=== PATIENT | male | born 1970 | race Caucasian/White ===

== ENCOUNTER 2019-05-09 17:43 | Inpatient (IN) ==
--- NOTE | 2019-05-09 18:15 | PROVIDER DOCUMENTATION ---
HPI-General Adult - General Chief Complaint: Flank Pain Stated Complaint: SEVERE BACK PAIN/VOMITING Time Seen by Provider: 05/09/19 17:51 Source: patient, family Allergies/Adverse Reactions: Patient Allergies Allergy/AdvReac Type Severity Reaction Status Date / Time No Known Allergies Allergy Verified 05/09/19 18:35 Home Medications: Home Medication List Medication Instructions Recorded Confirmed Last Taken Type Fexofenadine [Sade] 180 mg PO DAILY 05/09/19 05/09/19 Unknown History - History of Present Illness -Gen Adult Nature of Presenting Problems: 49yo male presents with acute onset of left sided abdominal and back pain. Patient reports that he has noted some discolored urine for about the last month on and off. He denies dysuria. He does report nausea and vomiting, but denies fevers. Location of Pain/Injury: reports: other (flank) Pain Radiation: reports: back Onset/Duration: reports: 1 hour ago Timing: reports: intermittent Modifying Factors: improves with: movement Associated Symptoms: reports: nausea, vomiting Review of Systems - Adult - REVIEW OF SYSTEMS - ADULT ROS:: unobtainable per condition Constitutional: denies: fever Eyes: reports: no symptoms reported Ears, Nose, Mouth & Throat: reports: no symptoms reported Cardiovascular: reports: no symptoms reported. denies: chest pain Respiratory: reports: no symptoms reported Gastrointestinal: reports: abdominal pain, nausea, vomiting. 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 negative: guarding, tenderness - MUSCULOSKELETAL Back Exam: CVA tenderness (left) - SKIN Integumentary: normal color - NEUROLOGIC Neurologic: grossly normal - PSYCHIATRIC Psych/Mental Status: normal mood/affect, normal thought content, normal thought process Progress - PLAN OF CARE/RESULTS Progress/Plan/Lab Results: Vital Signs - 8 hr 05/09/19 17:45 05/09/19 17:47 Temperature 98.1 F 98.1 F Pulse Rate 134 H 134 H Respiratory Rate 22 22 Blood Pressure 160/99 O2 Sat by Pulse Oximetry 99 99 Orders Category Date Time Status CBC WITH ELECTRONIC DIFF [HEME] Stat Lab 05/09/19 18:14 Uncollected Chem22 [COMPREHENSIVE METABOLIC PANEL] [CHEM] Stat Lab 05/09/19 18:14 Uncollected URINALYSIS W/POSS RFLX CULT [URINALYSIS] Stat Lab 05/09/19 17:52 Uncollected Result Diagrams: 05/09/19 18:21 05/09/19 18:21 - REASSESSMENT Reassessment #1 Status: other (Discussed case with Dr. Colunga or urology specificall obstruction and CR of 1.3. Recomendation was if pain can be controlled patient can follow up with urology for stone removal, if pain persistant patient to be admitted.) Reassessment #2 Status: improving (There is some improvement in pain, but it is still present after IV toradol and morphine. Given persistant pain will admit. Discussed with hospitalist, and patient to be admited.) Departure - Departure Date of Disposition Decision: 05/09/19 Time of Disposition Decision: 22:41 DIAGNOSIS: Kidney stone, TIFFANIE (acute kidney injury) Hydronephrosis Qualifiers: Hydronephrosis type: with renal calculous obstruction Qualified Code(s): N13.2 - Hydronephrosis with renal and ureteral calculous obstruction Disposition: ADMITTED INPATIENT 09 Certified Medical Emergency: Emergent Condition: Fair Referrals and Follow-Ups: Jaspreet Goel MD [Primary Care Provider] - - Critical Care Note This patient required my direct & personal management of CC.: No Attestation - Physician/ DOMINGA Attestation Patient care was provided by Advanced Practice Provider:: No The physician spent face to face time with patient:: Yes Advanced Practice Provider documentation review:: Supervising physician onsite and consulted in the evaluation and care of this patient. The physician did have a face to face encounter with the patient.
[2019-05-09] MEDS ORDERED: TORADOL IM ONE (18:33)
[2019-05-09] MEDS ORDERED: TORADOL IV ONE (18:34)
[2019-05-09 18:45] LABS: BASO# 0.06 X1000 (0.0-0.2); BASO% 0.7 % (0.0-0.8); EOS# 0.34 X1000 (0.0-0.7); EOS% 4.1 % (0.0-10.0); HEMATOCRIT 42.8 % (42.0-52.0); HEMOGLOBIN 15.2 g/dL (14.0-18.0); IMM GRAN# 0.03 X1000 (0.0-0.04); IMM GRAN% 0.4 % (0.0-0.5); LYMPH# 2.19 X1000 (1.2-3.4); LYMPH% 26.2 % (20.5-51.1); MCH 31.1 PG (27-31); MCHC 35.5 g/dL (33-37); MCV 87.5 FL (81-99); MONO# 0.64 X1000 (0.11-0.59); MONO% 7.7 % (1.7-9.3); MPV 10.1 FL (7.4-10.4); NEUT% 60.9 % (42.2-75.2); PLT 294 X1000 (130-400); RBC 4.89 XMIL (4.7-6.1); RDW 12.9 % (11.5-14.5); WBC 8.36 X1000 (4.8-10.8)
--- NOTE | 2019-05-09 19:20 | Diag Imaging Result Doc PS360 ---
EXAM: CT ABDOMEN/PELVIS W/O CONTRAST 05/09/2019 HISTORY: Left back and kidney pain TECHNIQUE: This exam was performed using automated exposure control, adjustment of mA or kV according to patient size, and/or use of iterative reconstruction technique. COMMENT: There are no previous studies available for comparison. There is no evidence of acute disease in the chest. There has been cholecystectomy. The spleen and adrenal glands are not enlarged. There are no gross hepatic abnormalities. There is a tiny stone in the mid right collecting system. There is perinephric stranding and hydronephrosis on the left. There is a stone at the ureteropelvic junction measuring almost 9 mm in greatest dimension. There is no evidence of bowel obstruction or appendicitis. There is no free fluid in the pelvis. There is no evidence of acute bony abnormality. There is an air-containing cyst in the posterior left iliac bone. IMPRESSION: Obstructing stone at the left ureteropelvic junction. Electronically signed by Jim Camejo 05/09/2019 7:17 PM
[2019-05-09 19:22] LABS: ALB/GLOB RATIO 1.8; ALBUMIN 4.7 g/dL (3.5-5.0); CREATININE 1.3 mg/dL (0.7-1.2); POTASSIUM 3.6 mmol/L (3.5-5.1); TOTAL BILIRUBIN 0.59 mg/dL (0.20-1.00); TOTAL PROTEIN 7.3 g/dL (6.3-8.3)
[2019-05-09] MEDS ORDERED: MORPHINE IV ONE ×2 (19:58→21:05)
[2019-05-09] MEDS ORDERED: NS 1,000 ML IV ONE (20:20)
[2019-05-09 20:30] LABS: BILIRUBIN URINE NEGATIVE (NEGATIVE); BLOOD URINE MODERATE (NEGATIVE); COLOR YELLOW; GLUCOSE URINE NEGATIVE (NEGATIVE); KETONE URINE TRACE mg/dL (NEGATIVE); LEUKOCYTES URINE NEGATIVE (NEGATIVE); NITRITE URINE NEGATIVE (NEGATIVE); PH URINE 5.5; PROTEIN URINE TRACE mg/dL (NEGATIVE); SP GRAVITY URINE 1.021; TURBIDITY URINE CLEAR (CLEAR); URINE SOURCE CLEAN CATCH; UROBILINOGEN URINE NORMAL (NORMAL)
[2019-05-09 20:36] LABS: UR EPITHELIAL CELLS <10 /HPF (<10); URINE BACTERIA NEGATIVE /HPF; URINE RBC TNTC /HPF (<10); URINE WBC <10 /HPF (<10)
[2019-05-09 20:47] LABS: URINE CASTS NONE SEEN; URINE CRYSTALS NONE SEEN; URINE YEAST NONE SEEN
[2019-05-09] MEDS ORDERED: MORPHINE IV PRN (23:14)
[2019-05-09] MEDS ORDERED: ZOFRAN IV PRN (23:14)
[2019-05-09] MEDS: NS 1,000 ML IV SCH (23:25)
[2019-05-10] MEDS ORDERED: MORPHINE IV ONE (01:02)
--- NOTE | 2019-05-10 01:10 | HISTORY AND PHYSICAL ---
PRIMARY CARE PHYSICIAN: Dr. Goel. CHIEF COMPLAINT: Left flank/back pain. HISTORY OF PRESENTING ILLNESS: A 49-year-old male without any significant past medical history presented to the emergency department with several days history of having left flank/back pain. The patient states that the pain was extreme and he could not tolerate it. The patient was also having nausea, vomiting during this time. The patient was evaluated in the emergency department and he had abdominal CT which did show a 9 mm obstructing stone at the left ureteropelvic junction. The patient's case was discussed with Urology who recommended the patient be admitted due to patient's severity of his pain. At the time of my examination, patient denied any headache, fever, chills, chest pain, shortness of breath or any weight changes, but complained left flank pain. PAST MEDICAL HISTORY: None. PAST SURGICAL HISTORY: Cholecystectomy. ALLERGIES: No known drug allergies. CURRENT MEDICATIONS: None. SOCIAL HISTORY: No history of smoking, alcohol or illicit drug use. FAMILY HISTORY: No history of coronary artery disease. REVIEW OF SYSTEMS: Fourteen point review of systems as listed in HPI. Other systems negative. PHYSICAL EXAMINATION: GENERAL: Cooperative, friendly male. He is resting comfortably now. VITAL SIGNS: Temperature 98.1 degrees, pulse 134, respirations 22, blood pressure 162/90. HEENT: Atraumatic, normocephalic. Extraocular movements intact. PERRLA. NECK: Supple. CHEST: Clear to auscultation. CARDIOVASCULAR: Regular rate and rhythm. S1, S2. ABDOMEN: Soft. Positive bowel sounds. BACK: Left flank tenderness. NEUROLOGIC: Nonfocal. GENITOURINARY: No bladder distention. SKIN: Warm. LABORATORIES AND STUDIES: WBCs 8.36, hemoglobin 15.2, hematocrit 42.8, platelets 294,000. Sodium 139, potassium 3.6, chloride 100, CO2 is 24, BUN is 20, creatinine is 1.3, glucose is 126. CT of the abdomen and pelvis shows obstructing stone at the left ureteropelvic junction. ASSESSMENT: This is a 49-year-old male who had presented to emergency department with several days history of worsening left flank pain. He was evaluated in the emergency department. He had imaging done which did show a 9 mm obstructing stone at the left ureteropelvic junction. Subsequently, he will need admission for further management. 1. Left flank pain. 2. Obstructing stone at the left ureteropelvic junction. PLAN: 1. We will admit patient to medical floor with telemetry. 2. Continue with supportive treatment with IV fluids, antiemetics, pain control. 3. We will keep patient NPO. 4. We will consult urologist. 5. Put patient on DVT prophylaxis with SCDs. 6. We will continue to follow, reassess and make further recommendation based on patient's clinical course. cc: MD Jaspreet Dominguez MD
[2019-05-10] MEDS: MORPHINE IV PRN ×4 (05:02→22:45)
[2019-05-10] MEDS: NS 1,000 ML IV SCH ×2 (06:16→20:35)
[2019-05-10 07:21] LABS: BASO# 0.04 X1000 (0.0-0.2); BASO% 0.5 % (0.0-0.8); EOS# 0.18 X1000 (0.0-0.7); EOS% 2.1 % (0.0-10.0); HEMATOCRIT 42.2 % (42.0-52.0); LYMPH# 1.82 X1000 (1.2-3.4); LYMPH% 21.1 % (20.5-51.1); MCHC 35.5 g/dL (33-37); MCV 87.2 FL (81-99); MONO# 0.86 X1000 (0.11-0.59); NEUT# 5.72 X1000 (1.4-6.5); NEUT% 66.3 % (42.2-75.2); PLT 255 X1000 (130-400); RBC 4.84 XMIL (4.7-6.1); RDW 12.9 % (11.5-14.5); WBC 8.62 X1000 (4.8-10.8)
[2019-05-10 08:12] LABS: AGAP 16; BUN 17 mg/dL (8-22); CALCIUM 9.4 mg/dL (8.8-10.2); CHLORIDE 104 mmol/L (98-107); COSMO 284; CREATININE 1.2 mg/dL (0.7-1.2); ESTIMATED GFR > 60; GLUCOSE 112 mg/dL (70-104); SODIUM 141 mmol/L (136-145); TCO2 21 mmol/L (25-35)
--- NOTE | 2019-05-10 10:00 | Diag Imaging Result Doc PS360 ---
EXAM: KUB ABDOMEN HISTORY: Kidney stone with persistent pain TECHNIQUE: Abdomen single view COMPARISON: CT from 05/09/2019 FINDINGS: There are several pelvic phleboliths as well as a 9 mm calcification adjacent to the left transverse process of the L3 vertebra. No bowel obstruction. No organomegaly. IMPRESSION: Left abdominal calcification consistent with the ureteral stones seen on the recent CT. Electronically signed by Marquis Charles 05/10/2019 9:58 AM
--- NOTE | 2019-05-10 13:27 | PROGRESS NOTE ---
DATE: 05/10/2019 SUBJECTIVE: Patient is stable in regard to his pain control. Presently, he is awaiting surgery by Dr. Colunga regarding large 9 mm UPJ stone. OBJECTIVE: Afebrile. Pulse 56, blood pressure 137/85. O2 saturation room air 98%.CV: RRR without murmur. Lungs: CTA. Abdomen: Soft, nontender, and nondistended. Extremities: No edema. Neurologic: No focal deficits. LABORATORY DATA: White count 8.6, hemoglobin 15, and platelets 255,000. Neutrophils 66, lymphocytes 21, monocytes 10. Sodium 141, potassium 4.0, chloride 104, CO2 21, BUN 17, creatinine 1.2, and calcium 9.4. CT scan abdomen and pelvis reviewed from yesterday revealing an obstructing stone at the left UPJ 9 mm. ASSESSMENT: Left UPJ obstructing kidney stone. PLAN: The patient for surgery today per Dr. Colunga. We will continue to follow perioperatively. Continue IV fluids and pain control. cc: Jaspreet Goel MD
[2019-05-10] MEDS ORDERED: DIPRIVAN 1% ONE (14:34)
[2019-05-10] MEDS ORDERED: DECADRON ONE (14:35)
[2019-05-10] MEDS ORDERED: ROBINUL ONE (14:35)
[2019-05-10] MEDS ORDERED: TORADOL ONE (14:35)
[2019-05-10] MEDS ORDERED: XYLOCAINE-MPF 2% ONE (14:35)
[2019-05-10] MEDS ORDERED: ZOFRAN ONE (14:35)
--- NOTE | 2019-05-10 14:38 | CONSULTATION ---
DATE OF CONSULTATION: 05/10/2019 CHIEF COMPLAINT: Left flank pain. HISTORY OF PRESENT ILLNESS: Mr. Khan is a 49-year-old who presented to the emergency room complaining of left flank pain. The patient states that it has been going on for several weeks and it has progressively gotten worse. He states it is associated with some nausea and vomiting. In the emergency room, he had a CT scan which showed approximately a 9 mm proximal ureteral stone. The patient was having significant pain, and was admitted for observation and pain control. The patient was evaluated this morning, he states that he has had improvement in his pain, but still complaining of burning at the tip of his penis and feeling like he is not emptying his bladder to completion. The patient states that he urinated around 11:30 last night and has been unable to urinate this morning. The patient has been able to void several times so far today since then. However, he continues to have an elevated PVR. Uncertain if a stone is leading to this as he has had a KUB which showed a stone with minimal movement in the mid ureter. He denies any fevers or chills. Denies any nausea or vomiting this morning. PAST MEDICAL HISTORY: None. PAST SURGICAL HISTORY: Cholecystectomy. ALLERGIES: None. HOME MEDICATIONS: No home medications. SOCIAL HISTORY: He denies tobacco, alcohol, or illicit drug use. FAMILY HISTORY: He denies malignancy. REVIEW OF SYSTEMS: A point review of systems was performed with all pertinent positives and negatives in the HPI. PHYSICAL EXAMINATION: Vital Signs: Temperature 97.7 degrees, heart rate 56, blood pressure 137/85, oxygen saturation 98% on room air. General: No acute distress. Resting comfortably in bed. Alert and oriented x3. HEENT: Normocephalic, atraumatic. Pupils equal, round, and reactive to light. Good dentition. Respiratory: Good respiratory effort without audible wheezing or rales. Cardiovascular: Regular rate and rhythm. Abdomen: Soft, nontender. Slight suprapubic distention. No palpable masses. : No suprapubic tenderness. Mild left CVA tenderness. Normal phallus with orthotopic meatus, bilateral testicles palpated without asymmetry or lesions. The patient has had prior vasectomy. Site is palpated. Musculoskeletal: Moving all extremities. Skin: No skin lesions or rashes. NEUROLOGIC: Gross motor and sensory intact. LABS: White blood cell count 8.6, hemoglobin 15, hematocrit 42.2, and platelets 255,000. Sodium 141, potassium 4, chloride 104, bicarb 21, BUN 17, creatinine 1.2, glucose 112. IMAGING: CT of the abdomen and pelvis reviewed which showed a large stone present in the proximal left ureter measuring approximately 9 mm associated with mild to moderate hydronephrosis. The patient also had a KUB from today which showed stone with minimal movement in the proximal ureter overlying L3 and appears to be quite dense. ASSESSMENT AND PLAN: Mr. Khan is a 49-year-old who presents for evaluation of left flank pain. The patient had a CT scan done in the emergency room yesterday which showed a 9 mm stone present in the mid to proximal ureter. The patient continues to have some pain, which is slightly better controlled today. The patient's major complaint is difficulty with urination and a sensation of incomplete emptying. A KUB was performed today which showed minimal movement of the stone. The patient continues to have difficulty with urination and postvoid residual showed elevated postvoid residual of around 400 to 500. The patient does not seem to have a stone near the bladder that could lead to spasming of the ureter and bladder itself. Hopefully, if we bypass the stone, this will help with symptoms and allow him to feel like he is more efficiently emptying his bladder. If he continues to have issues with urination, we may have to insert an indwelling catheter. Talking with the patient, I recommended consideration for surgical intervention including ureteroscopy and removal of stone. Due to its location, I told him it may be difficult to get into the ureter all the way up to the stone site. The patient may have a very tight ureter and ultimately need to have a stent placed and undergo extracorporeal shockwave lithotripsy in the future. I discussed this with him but he would like some relief at this time. We will plan to perform a surgery later today. Keep nothing per oral in preparation for surgery. cc: MD Jaspreet Schmitz MD [facility]
[2019-05-10] MEDS ORDERED: KEFZOL 2 GM/D5W 2 GM/50 ML IVPB ONE (15:46)
[2019-05-10] MEDS ORDERED: OFIRMEV 1000 MG/ISOTONIC SOLN 1,000 MG/100 ML BOTTLE ONE (17:14)
[2019-05-10] MEDS ORDERED: DILAUDID ONE (17:36)
--- NOTE | 2019-05-10 21:06 | OPERATIVE NOTE ---
PROCEDURE DATE: 05/10/2019 PREOPERATIVE DIAGNOSES: 1. Left ureteral stone. 2. Left flank pain. 3. Left hydronephrosis. POSTOPERATIVE DIAGNOSES: 1. Left ureteral stone. 2. Left flank pain. 3. Left hydronephrosis. PROCEDURE PERFORMED: 1. Cystoscopy. 2. Left retrograde pyelogram. 3. Left ureteroscopy with laser lithotripsy. 4. Left ureteral stent placement. SURGEON: Jacob Colunga MD PROFESSOR OF HISTORY: None. COMPLICATIONS: None. ESTIMATED BLOOD LOSS: 5 mL. DRAINS: 6 x 26 cm left ureteral stent. SPECIMEN REMOVED: None. ANESTHESIA: LMA. INDICATIONS FOR PROCEDURE: Mr. Khan is a 49-year-old who had presented to the emergency room yesterday complaining of left flank pain. The patient had significant pain and underwent a CT scan. CT scan showed evidence of a 9 mm left proximal ureteral stone. The patient was admitted to the hospital for pain management. The patient was evaluated this morning by urology. Due to persistent pain. The patient desired surgical intervention, discussed ureteroscopy and stone removal versus cystoscopy with ureteral stent placement and staged extracorporeal shockwave lithotripsy. The patient desired to have the stone treated today. Discussed with him that I would try to remove the stone and break it up. If unable to, we would have to consider secondary procedure. We discussed risk of hematuria, infection, damage to surrounding structures, need for secondary procedures, persistent pain. After thorough discussion, the patient desired to proceed. DESCRIPTION OF PROCEDURE: After informed consent was obtained, the patient was brought to the operating room, placed on the operating table in supine position. The patient received preoperative antibiotics and underwent LMA placement. The patient was positioned to a dorsal lithotomy position, was prepped and draped in usual sterile fashion. A preoperative time-out was performed with all parties in agreement, including anesthesia, surgical and nursing staff. At which point I inserted a 21-Welsh cystourethroscope through the urethra showing normal caliber urethra, no evidence any stricture disease or papillary lesions. The patient had a small prostate, and on entering into the bladder, no diverticulum, cellules, trabeculations, or papillary lesions were seen. The entirety of the bladder was inspected. Both ureteral orifices were visualized with efflux of clear yellow urine from both sides. On urban anthropologist fluoroscopy, calcifications were seen in the proximal left ureter at which point an open-ended catheter was passed through the scope, flushed of all bubbles. Left ureteral orifice was cannulized, and a retrograde was performed, which showed a moderate-sized ureter with evidence of filling defects at the previously seen ureteral stone at which point wire was passed through an open-ended catheter up into the kidney. In the process, the stone was then moved up into the kidney itself. The ZIPwire was left in place, and the cystourethroscope was removed. The patient's bladder was completely drained, and a semi-rigid ureteroscope was advanced through the urethra and up into the bladder. The patient's ureteral orifice was quite narrow, but using a PTFE wire, was able to advance this through the ureteral orifice and advance the ureteroscope through the ureteral orifice and up into the midportion of the ureter. No stones or edema was seen. The ZIPwire and the PTFE wire were left in place, and a ureteroscope was completely removed at which point I attempted to pass a flexible scope over the PTFE wire and up into the kidney; however, it would not pass easily past the ureteral orifice. Decision was made to remove the PTFE wire and passed the scope over the ZIPwire, which did allow for easier passage up into the kidney itself. At which point, a stone was encountered. It was present in the renal pelvis. Ultimately, the stone was moved up into the upper pole, which allowed easy access and fragmenting of the stone. The stone was quite hard using settings of 12 hertz and 8 [place] ri[place]. Energy was applied to the stone, and it was dusted to small pieces. A large amount of debris was seen, but the stone seemed to break up into small enough fragments at which point a retrograde shot through the scope. The ureteral calyx was evaluated with no residual large fragments. Once this was completed, no other stones were seen within the kidney itself. ZIPwire was then reinserted back through the ureteroscope and seen to coil within the upper pole. The wire was left in place, and the ureteroscope was slowly withdrawn, which showed a normal ureter. No significant trauma. The wire was left in place and then back-loaded through the cystourethroscope, and a 6 x 26 cm left ureteral stent was passed over the wire with good curl within the collecting system and endoscopically visualized in the bladder. Good drainage was seen through and around the stent. The patient's bladder was cycled multiple times. Several knots were tied within the strings, and they were cut to adequate length. The patient was then awakened and was taken to recovery in stable condition. DISPOSITION: Patient will be transferred back to the floor, and if he does well in recovery, will be discharged later tonight. The patient will follow up in the office in 1 month for followup. The patient will remove the stent on . cc: MD Jaspreet Schmitz MD [facility]
[2019-05-11 08:33] VITALS: BP 158/90
--- NOTE | 2019-05-11 08:43 | Diag Imaging Result Doc PS360 ---
EXAM: RETROGRADES 2 OR 3 FILMS 05/10/2019 HISTORY: LEFT RETROGRADE, STONE EXTRACTION, STENT PLACEMENT TECHNIQUE: 27 images, 0.45 mGy, 30 seconds fluoroscopy time. COMMENT: There are filling defects in the proximal left ureter. Stone extraction and stent placement on the left are performed by Dr. Colunga. IMPRESSION: Left ureteral stone extraction and stent placement. Electronically signed by Jim Camejo 05/11/2019 8:41 AM
== END 2019-05-11 10:04 | disposition home or self-care (01) | DRG 661 ==
LOC: ED 17:43 → SUATTDRO 22:58 → 3N 22:58
PROVIDERS: ADMIT Family Medicine; ATTEND Family Medicine